=== PATIENT | male | born 1960 | race Caucasian/White ===

== ENCOUNTER 2018-02-04 03:55 | Day surgery (SDC) | payer BC ==
[~2018-02-04] VITALS: Ht 180.3 cm; Wt 96.6 kg
[~2018-02-04 03:55] MED LIST: ESOM40CA42 PO
[2018-02-04 06:18] VITALS: BP 113/91
[2018-02-04] MEDS ORDERED: LIDOCAINE/SOD BICARB 8.4% SYR ID ONE (06:45)
[2018-02-04] MEDS ORDERED: NORMOSOL R SOLN(*) 1000 ML BAG 1,000 ML IV PRN (06:45)
[2018-02-04] MEDS ORDERED: LIDOCAINE MPF 1% 5 ML VIAL ONE (06:59)
[2018-02-04] MEDS ORDERED: PROPOFOL EMUL(*) 10MG/ML 20 ML 40 ML ONE (06:59)
[2018-02-04 08:03] VITALS: BP 110/78
--- NOTE | 2018-02-04 08:07 | Post Operative Progress Note ---
Post Operative Progress Note Date: Feb 04, 2018 Time: 08:06 Surgeon: iris Anesthesia: dr stanley Pre-Op Diagnosis: heartburn and screening colonoscopy Post-Op Diagnosis: normal colonoscopy, hiatal hernia distal esophageal ring and gastric polyps Procedure(s): colonoscopy and egd with polypectomy and balloon dilation to 20 mm JENNIFER MCLAIN MD Feb 04, 2018 08:07
[2018-02-04] MEDS ORDERED: PANT40TA65 PO (08:08)
--- NOTE | 2018-02-04 08:09 | Short(Outpt) Discharge Summary ---
Discharge Summary Reason for Hosp/Final Diag: (1) Heartburn Hospital Course & Plan: hiatal hernia distal esophageal ring and gastric polyps (2) Encounter for screening colonoscopy Hospital Course & Plan: normal colonoscopy Departure Discharge to: Home Discharge Instructions Home Meds No Active Prescriptions or Reported Meds Diet: Regular Activity: As Tolerated JENNIFER MCLAIN MD Feb 04, 2018 08:09
[2018-02-04 08:36] VITALS: BP 112/72
[2018-02-04 08:51] VITALS: BP 111/75
[2018-02-04 08:53] VITALS: BP 123/84
--- NOTE | 2018-02-04 16:30 | OPERATIVE REPORT 1 ---
EVENT DATE: February 04, 2018 SURGEON: Lupillo Mott MD ANESTHESIOLOGIST: Adelfo Bueno MD ANESTHESIA: Sedation. PREOPERATIVE DIAGNOSIS Heartburn. POSTOPERATIVE DIAGNOSES 1. Hiatal hernia. 2. Distal esophageal ring. 3. Benign-appearing gastric polyps. PROCEDURE PERFORMED Esophagogastroduodenoscopy with polypectomy and balloon dilatation to 20 mm. DESCRIPTION OF PROCEDURE Patient was placed in the left lateral decubitus position, given intravenous sedation. Flexible gastroscope was inserted and advanced without difficulty. The proximal esophagus appeared to be normal. It distended nicely. It had normal-appearing mucosa. At the GE junction which was at 39 cm, it was distinct. He appeared to have an esophageal ring. He had a hiatal hernia. The esophageal mucosa was in good condition. No evidence of ulceration or erosions, nothing to suggest Bailey esophagus. We entered the stomach which was empty, passed through the pylorus, and the second and third portions of the duodenum which were normal. Duodenal bulb was normal. Pylorus was normal. Antrum was normal. Body of stomach was normal. Scope was retroflexed. He had a few benign-appearing gastric polyps a couple millimeters in size. In the fundus, he had the hiatal hernia. We removed one of these polyps with the cold cup. We then placed the balloon across the GE junction, did dilatations to 20 mm, and let the balloon down. This was not a tight narrowing, and we did not cause much trauma to the tissue. Scope was then withdrawn. Patient tolerated the procedure well. No apparent complications. [facility]ENTER[facility]ry
--- NOTE | 2018-02-04 16:36 | OPERATIVE REPORT 1 ---
EVENT DATE: February 04, 2018 SURGEON: Lupillo Mott MD ANESTHESIOLOGIST: Adelfo Bueno MD ANESTHESIA: Sedation. PREOPERATIVE DIAGNOSIS Screening colonoscopy. POSTOPERATIVE DIAGNOSIS Normal-appearing colonoscopic examination. PROCEDURE PERFORMED Colonoscopy. DESCRIPTION OF PROCEDURE Patient was placed in the left lateral decubitus position. Rectal exam was unremarkable. Flexible colonoscope was inserted and advanced to the cecum. He had an excellent bowel prep. The ileocecal valve and base of the cecum were identified. Scope was slowly withdrawn. Care was taken to look behind the haustral folds. No abnormalities were noted in the cecum, right colon, transverse, descending, and sigmoid colon. Rectum was normal. Scope was retroflexed. That appeared to be normal. Scope was withdrawn. Patient will require repeat colonoscopy in 10 years. [facility]
== END 2018-02-04 09:00 | disposition home or self-care (01) ==
LOC: OR 03:55
PROVIDERS: ATTEND Surgery
DX: Z12.11 Encounter for screening for malignant neoplasm of colon (principal); R12 Heartburn; K44.9 Diaphragmatic hernia without obstruction or gangrene; K22.2 Esophageal obstruction; K31.7 Polyp of stomach and duodenum
CPT/HCPCS: 00812; 43239; 43249; 45378; 88305; 88344; J2001; J2704